=== PATIENT | male | born 1990 | race Caucasian/White ===

== ENCOUNTER → 2019-03-21 08:24 | Outpatient (CLI) | payer OTHER, SELFPAY ==
[2019-02-24 15:56] VITALS: BMI 27.3
[2019-03-21 10:25] LABS: AST(SGOT) 25 U/L (15-37); Alanine Aminotransfer ALT/SGPT 29 U/L (16-61); Albumin, Serum 4.4 g/dL (3.2-5.0); Alkaline Phosphatase 55 U/L (45-117); Bilirubin, Direct 0.15 mg/dL (0.00-0.30); Cholesterol 190 mg/dL (200); Globulin 3.1 g/dL (2.2-4.2); High Density Lipoprotein 50 mg/dL; Protein, Total 7.5 g/dL (6.4-8.2); Triglycerides 59 mg/dL; Very Low Density Lipoprotein 12 mg/dL (5-40)
== END ==
PROVIDERS: Family Provider Family Medicine; PCP Family Medicine; Referring Provider Internal Medicine Cardiovascular Disease; Visit Provider Internal Medicine Cardiovascular Disease
DX: E78.00 Pure hypercholesterolemia, unspecified (principal)
CPT/HCPCS: 36415; 80061; 80076

== ENCOUNTER → 2019-03-24 | Outpatient (CLI) | payer SELFPAY, OTHER ==
[2019-02-24 15:56] VITALS: BMI 27.3
--- NOTE | 2019-03-24 12:50 | ECHOD_ITS ---
Reason For Study: ARRHYTHMIA Procedure This was a 2D Doppler, Color Flow transthoracic echocardiogram. Exam performed in department. Left Ventricle Mid cavitary false tendon noted. Mildly dilated left ventricle. The estimated ejection fraction is 65 %. Normal diastology for age. No regional wall motion abnormalities noted. Right Ventricle Normal size and thickness. Normal systolic function. Atria Normal left atrium. Normal right atrium. Normal atrial septum. Mitral Valve The mitral valve is structurally normal. No prolapse or stenosis seen. Tricuspid Valve Normal tricuspid valve. Trivial tricuspid valve insufficiency. Right ventricular systolic pressure estimated to be 32 mmHg. Pulmonic Valve Normal pulmonic valve. Trivial pulmonic valve insufficiency. Great Vessels Normal aortic root. Normal arch. Normal inferior vena cava. Inferior vena cava collapse with sniff. Pericardium/Pleural No pericardial effusion. MMode/2D Measurements & Calculations LVIDd: 5.2 cm IVSd: 1.1 cm Ao root diam: 2.6 cm LVIDs: 3.5 cm LVPWd: 1.1 cm RVDd: 3.2 cm FS: 33.0 % LAV(MOD-bp): 46.0 ml LA A4 area: 16.7 cm2 LA dimension(2D): 3.2 cm LAV(MOD-bp) Indexed: 25.2 ml/m2 LAV(MOD-sp2): 40.7 ml LAV(MOD-sp4): 47.5 ml RA A4 area: 11.0 cm2 Time Measurements MV dec time: 0.10 sec Doppler Measurements & Calculations MV E max kunal: 101.6 cm/sec Lat Peak E' Kunal: 15.0 cm/sec Med Peak E' Kunal: 14.5 cm/sec MV A max kunal: 48.7 cm/sec E/E' lat: 6.8 E/E' med: 7.0 MV E/A: 2.1 Ao V2 max: 145.2 cm/sec LV V1 max: 115.7 cm/sec PA V2 max: 172.9 cm/sec Ao max P.4 mmHg LV V1 max P.4 mmHg PA V2 mean: 119.9 cm/sec PA V2 VTI: 33.9 cm TR max kunal: 257.8 cm/sec TR max P.6 mmHg Interpretation Summary The estimated ejection fraction is 65 %. Normal diastology for age. Trivial tricuspid valve insufficiency. Right ventricular systolic pressure estimated to be 32 mmHg. Mildly dilated left ventricle. There is no comparison study available. Ordering Physician: Jermaine Morrison Referring Physician: Jose Rafael Bales Performed By: Vicenta Mosqueda RDCS, RVT
--- NOTE | 2019-03-24 12:50 | STEWCON_ITS ---
Reason For Study: ARRHYTHMIA, PALPITATIONS, WPW Stress Results Protocol: Stress Echocardiogram Maximum Predicted HR: 194 bpm Target HR: 165 bpm % Maximum Predicted HR: 89 % DurationHeart Rate Stage (mm:ss) (bpm) BP Comment BASELINE 85 150/603 CC DILUTED DEFINITY USED HILTON PROTOCOL- STAGE 1 3:00 111 148/72NO SX HILTON PROTOCOL- STAGE 2 3:00 126 154/60NO SX HILTON PROTOCOL- STAGE 3 3:00 151 168/58NO SX HILTON PROTOCOL- STAGE 4 3:00 173 170/58SL SOB, FATIGUE RECOVERY 99 128/86DENIES COMPLAINT Stress Duration: 12:00 mm:ss Maximum Stress HR: 173 bpm Baseline Echocardiogram Findings The estimated ejection fraction is 65 %. Stress Echo Wall motion Data Resting WM Intermediate WM Stress WM Resting Wall Motion Wall Motion Stress No regional wall motion No regional wall motion abnormalities noted. abnormalities noted. EKG Data The baseline ECG displays normal sinus rhythm. The patient exercised according to the regular Hilton protocol for a total duration of 12:01. The maximum heart rate attained was 176 beats per minute. This was 90% of maximum predicted heart rate. The patient exercised into stage 5 of the Hilton protocol. During stress, there were no ST or T wave changes noted to suggest ischemia. No clinical angina was noted. Interpretation Summary The estimated ejection fraction is 65 %. Normal, adequate, treadmill echocardiogram. Negative for ischemia by EKG and echocardiographic criteria. No anginal symptoms noted. Rare PVCs noted. Appropriate blood pressure response to exercise. Above average exercise capacity for age. Test terminated due to leg discomfort and target heart rate achieved. Final LVEF is 75%. Decreased sensitivity due to poor echo windows requiring Definity agent. No complications. The study was technically difficult. Contrast injection was performed. Ordering Physician: Jermaine Morrison Referring Physician: Jermaine Morrison Performed By: Vicenta Mosqueda, RDCS, RVT
== END | disposition home or self-care (01) ==
PROVIDERS: Family Provider Family Medicine; PCP Family Medicine; Referring Provider Internal Medicine Cardiovascular Disease; Visit Provider Internal Medicine Cardiovascular Disease
DX: I45.6 Pre-excitation syndrome (principal); R00.0 Tachycardia, unspecified; R00.2 Palpitations
CPT/HCPCS: 93017; 93306; 93350; Q9957; A4216; C8928